=== PATIENT | female | born 1990 | race Caucasian/White ===

== ENCOUNTER 2020-03-28 15:20 | Inpatient (IN) | payer OTHER ==
[2020-03-28 17:19] LABS: BASO % 0.4 % (0-2.0); EOS % 0.1 % (0-4.5); HEMATOCRIT 39.1 % (32.4-45.2); HEMOGLOBIN 12.7 GM/dL (10.7-15.3); LYMPH % 17.4 % (8-40); MCHC 32.6 g/dl (32.0-36.0); MEAN CELL VOLUME 95.1 fl (80-96); MEAN PLT VOLUME 8.4 fl (7.5-11.1); NEUT % 75.1 % (42.8-82.8); PLATELET COUNT 285 K/MM3 (134-434); RBC 4.11 M/mm3 (3.60-5.2); RDW 14.1 % (11.6-15.6); WHITE BLOOD COUNT 13.4 K/mm3 (4.0-10.0)
[2020-03-28 17:31] LABS: INR 1.03 (0.83-1.09); PROTHROMBIN TIME (PATIENT) 12.2 SEC (9.7-13.0)
[2020-03-28 17:34] LABS: ACTIVATED PTT 26.6 SECONDS (25.2-36.5)
[2020-03-28 17:45] LABS: BLOOD UREA NITROGEN 7.4 mg/dL (7-18); CALCIUM 9.4 mg/dL (8.5-10.1); CREATININE 0.4 mg/dL (0.55-1.3); POTASSIUM 3.8 mmol/L (3.5-5.1)
[2020-03-28 18:12] VITALS: BMI 31.6
--- NOTE | 2020-03-28 19:09 | HP ---
Past Medical History - Admission Chief Complaint: PROM History of Present Illness: 29yo @ 38+wks by LMP/sono here for PROM No ctx/VB. 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: No: Alzheimer's, CVA, Dementia, Migraine, Multiple Sclerosis, Peripheral Neuropathy, Parkinson's, Seizure, Syncope, TIA, Vertigo, Other Cardiovascular: No: AFIB, Aneurysm, Aortic Insufficiency, Aortic Stenosis, CAD, CHF, Deep Vein Thrombosis, HTN, Hyperlipdemia, WI, Mitral Insufficiency, Mitral Stenosis, Murmur, Pulmonary Hypertension, Other Pulmonary: No: Asthma, Bronchitis, Cancer, COPD, O2 Dependent, Pneumonia, Previously Intubated, Pulmonary Embolus, Pulmonary Fibrosis, Sleep Apnea, Other Gastrointestinal: No: Ascites, Cancer, Constipation, Crohn's Disease, Diverticulitis, Diverticulosis, Esophageal Varices, Gastritis, GERD, GI Bleed, Hemorrhoids, Hiatal Hernia, Inflamatory Bowel Disease, Irritable Bowel Disease, Pancreatitis, Peptic Ulcer Disease, Ulcerative Colitis, Other Hepatobiliary: No: Cirrhosis, Cholelithiasis, Cholecystitis, Choledocholithiasis, Hepatitis A, Hepatitis B, Hepatitis C, Other Renal/: No: Renal Failure, Renal Inusuff, BPH, Cancer, Hematuria, Hemodialysis, Neurogenic Bladder, Renal Calculi, UTI, Other Reproductive: No: Ectopic , Endometriosis, Fibroids, PID, Polycystic Ovary Syndrome, Postmenopausal, Other ...: 3 ...Para: 1 ...Term: 1 ...: 0 ...Spon : 0 ...Induced : 1 ...Living Children: 1 ...Multiple Gestation: 0 ...LMP: 07/07/19 ... Weeks Gestation by Dates: 37.6 ...EDC by Dates: 04/12/20 ...EDC by Sono: 04/14/20 Heme/Onc: No: Anemia, B12 Deficiency, Bleeding Disorder, Cancer, Current Chemotherapy, Current Radiation Therapy, Hemochromatosis, Hypercoaguable State, Myeloproliferative Synd, Sickle Cell Disease, Sickle Cell Trait, Thr ombocytopenia, Other Infectious Disease: No: AIDS, C-Diff, Herpes Zoster, HIV, MRSA, STD's, Tuberculosis, VREF, Other Psych: No: Addictions, Anxiety, Bipolar, Depression, Panic, Psychosis, Schizophrenia, Other Musculoskeletal: No: Bursitis, Chronic low back pain, Hemiparesis, Hemiplegia, Osteoarthritis, Paraplegia, Other Rheumatology: No: Fibromyalgia, Gout, Lupus, Rheumatoid Arthritis, Sarcoidosis, Vasculitis, Other - Past Surgical History Past Surgical History: Yes: None Hx Myomectomy: No Hx Transabdominal Cerclage: No - Smoking History Smoking history: Never smoked - Alcohol/Substance Use Hx Alcohol Use: No History of Substance Use: reports: None - Social History Usual Living Arrangement: Yes: With Significant Other Do you think of yourself as: Straight/Heterosexual ADL: Independent History of Recent Travel: No Home Medications - Allergies Allergies/Adverse Reactions: Allergies Allergy/AdvReac Type Severity Reaction Status Date / Time No Known Allergies Allergy Verified 03/28/20 17:46 - Home Medications Home Medications: Ambulatory Orders Prenat 115/Iron Fum/Folic/Dss [ 19 Tablet] 1 each PO DAILY 03/28/20 Review of Systems - Review of Systems Constitutional: reports: No Symptoms Cardiovascular: reports: No Symptoms Respiratory: reports: No Symptoms Physical Exam - Maternity Vital Signs: Vital Signs Temperature 99.1 F 03/28/20 18:00 Pulse Rate 122 H 03/28/20 18:00 Respiratory Rate 18 03/28/20 18:00 Blood Pressure 101/56 L 03/28/20 18:00 O2 Sat by Pulse Oximetry (%) - Abdominal Exam/OB Number of Fetuses: Single Presentation: Vertex Contractions: Yes Regularity: Irregular Intensity: Unaware Monitor Mode: External Heart Rate Location: [facility] Category: I Accelerations: Non-Uniform Decelerations: None - Vaginal Exam/OB Vaginal Bleeding: No Speculum Exam: No Dilatation (cm): 3 Effacement (%): 50 Amniotic Membrane Status: Ruptured Nitrazine Test: Positive Amniotic Fluid: Yes: Clear Meconium: Light Presentation: Vertex/Position Station: -3 - Physical Exam Edema: No - Labs Lab Results: CBC, BMP 03/28/20 16:35 03/28/20 16:35 Imaging - Results Ultrasound: Report Reviewed Problem List - Problems (1) PROM (premature rupture of membranes) Code(s): O42.90 - VALERIA ROM, 7TH0 BETW RUPT & ONST LABR, UNSP WEEKS OF GEST Assessment/Plan 39yo @ 37.6wks by LMP/harmeet, KHAI 04/12/20 here with PROM Admit to L&D Cat I tracing Admission labs Pitocin IOL Epidural prn Anticipate ESSIE Verma MD
[2020-03-28] MEDS ORDERED: DEXTROSE 5%-LACTATED RINGERS 1,000 ML IV SCH (19:15)
[2020-03-28] MEDS ORDERED: OXYTOCIN 30 UNITS in 0.9% NS 30 UNIT/500 ML INFUS.BAG IVPB SCH (19:15)
[2020-03-28] MEDS ORDERED: OXYTOCIN 30 UNITS in 0.9% NS 30 UNIT/500 ML INFUS.BAG IVPB ONE (20:01)
[2020-03-28] MEDS: ELECTROLYTE-148 SOLN 1,000 ML IV SCH ×2 (20:15→23:00)
[2020-03-28] MEDS: AMPICILLIN - 2 GM in SODIUM CHLORIDE 100 ML IVPB SCH (21:45)
[2020-03-28] MEDS ORDERED: FENTANYL/BUPIVACAINE/NS/PF - PCEA - 50 ML DISP.SYRIN EP ONE (21:47)
[2020-03-28] MEDS ORDERED: PCA PUMP NR ONE (21:47)
[2020-03-28] MEDS ORDERED: AMPICILLIN SODIUM 2 GM VIAL ONE (21:47)
[2020-03-28] MEDS ORDERED: GENTAMICIN SO4 80 MG/2 ML VIAL ONE (21:47)
--- NOTE | 2020-03-28 21:47 | PN ---
Progress Note, Labor Vaginal Exam #1 Labor Exam Date: 03/28/20 Labor Exam Time: 21:46 Heart Rate (range): Cat II Dilatation: 3-4 Effacement (%): 70 Amniotic Membrane Status: Ruptured Presentation: Vertex/Position Station: -3 Remarks: Febrile 100.5 tachycardia 170s, moderate variability with no decels Will start Amp/Gent IV Tylenol Epidural Resume pitocin when FHT Cat I Discussed possibility of PLTCS for chorio Rosalinda Verma MD
[2020-03-28] MEDS ORDERED: ACETAMINOPHEN 1000 MG/100 ML VIAL (NON FORMULARY) IVPB ONE (21:48)
[2020-03-28] MEDS ORDERED: ACETAMINOPHEN INJECTION 100 ML IVPB ONE (21:57)
[2020-03-28] MEDS: GENTAMICIN INJECTION 80 MG in DEXTROSE 5%-WATER - 250 ML IVPB SCH (22:45)
[2020-03-28] MEDS ORDERED: NALOXONE HCL 0.4 MG/ML VIAL IVPUSH PRN (23:15)
[2020-03-28] MEDS ORDERED: FENTANYL/BUPIVACAINE/NS/PF - PCEA - 50 ML DISP.SYRIN EP SCH (23:15)
[2020-03-29] MEDS ORDERED: GENTAMICIN SO4 80 MG/2 ML VIAL ONE (01:15)
[2020-03-29] MEDS ORDERED: AMPICILLIN SODIUM 2 GM VIAL ONE (01:15)
[2020-03-29] MEDS: GENTAMICIN INJECTION 80 MG in DEXTROSE 5%-WATER - 250 ML IVPB SCH ×2 (02:00→14:59)
[2020-03-29] MEDS ORDERED: FENTANYL/BUPIVACAINE/NS/PF - PCEA - 50 ML DISP.SYRIN EP ONE (02:06)
[2020-03-29] MEDS: AMPICILLIN - 2 GM in SODIUM CHLORIDE 100 ML IVPB SCH ×4 (02:56→21:04)
--- NOTE | 2020-03-29 04:11 | PN ---
Progress Note, Labor Vaginal Exam #2 Labor Exam Date: 03/29/20 Labor Exam Time: 04:05 Heart Rate (range): Cat II Dilatation: 4 Effacement (%): 80 Amniotic Membrane Status: Ruptured Presentation: Vertex/Position Station: -3 Remarks: Pt with recurrent variable decels, deborah 20 below baseline max Pt repositioned, mild improvement IUPC placed, 10MVU with each contraction Grossly inadequate contractions Will monitor for additional hour and reassess, may need possible C/S Rosalinda Verma MD
[2020-03-29] MEDS ORDERED: CITRIC ACID/SODIUM CITRATE 30 ML UNIT-DOSE CUP PO ONE (04:37)
--- NOTE | 2020-03-29 04:41 | PN ---
Progress Note, Labor Vaginal Exam #3 Labor Exam Date: 03/29/20 Labor Exam Time: 04:39 Heart Rate (range): Cat II Remarks: IUPC placed, MVU <50, severely inadequate contractions Pitocin at 5mu Recurrent variable decels have continued with no decreased variability In light of intolerance, chorio and patient still remote from delivery, recommendation made to proceed to OR for PLTCS Risks and indications reviewed All questions answered. Consents signed. NICU, Anesthsia made aware Rosalinda Verma MD.
[2020-03-29] MEDS ORDERED: LIDO 2%/EPI 1:200000 PRESRVFRE (20 ML SDVIAL) ONE (04:57)
[2020-03-29] MEDS ORDERED: OXYTOCIN 10 UNITS/ML VIAL ONE (05:05)
[2020-03-29] MEDS ORDERED: OXYTOCIN 20 UNITS in 0.9% NS 20 UNIT/1,000 ML INFUS.BAG IV ONE (05:51)
[2020-03-29] MEDS ORDERED: morphine SULFATE/PF 0.5 MG/ML (2cc Syringe - QUVA) ONE ×2 (06:06)
[2020-03-29] MEDS ORDERED: IBUPROFEN 800 MG/8 ML IJ IVPB PRN (06:19)
[2020-03-29] MEDS ORDERED: METHYLERGONOVINE MALEATE 0.2 MG/1 ML AMP IM PRN (06:19)
[2020-03-29] MEDS ORDERED: oxyCODONE HCL 5 MG TABLET PO PRN (06:19)
--- NOTE | 2020-03-29 06:19 | OP ---
Operative Note - Note: Operative Date: 03/29/20 Pre-Operative Diagnosis: 38 week , Chorioamnionitis, NRFHT, Failure to progress Operation: Primary Low Transverse Findings: VMI, ROT, no nuchal, no meconium. Weight 6.15, Apgars 9/9, no nuchal, no meconium, normal tubes and ovaries Post-Operative Diagnosis: Same as Pre-op Surgeon: Kortney Verma Crepe Box Tender: Efren Denny Anesthesia: Epidural Estimated Blood Loss (mls): 600 Drains, Volume Out (mls): 400 (clear urine) Operative Report Dictated: Yes
[2020-03-29] MEDS ORDERED: OXYTOCIN 20 UNITS in 0.9% NS 20 UNIT/1,000 ML INFUS.BAG IV SCH (06:30)
[2020-03-29] MEDS ORDERED: IBUPROFEN 800 MG/8 ML IJ IVPB ONE (08:01)
[2020-03-29] MEDS: FERROUS SO4 325 MG TABLET (FP) PO SCH ×2 (11:06→22:55)
[2020-03-29] MEDS: PRENATAL VITAMINS W/ FOLIC ACID TABLET (FP) PO SCH (11:07)
[2020-03-29] MEDS: GENTAMICIN 80 MG PREMIXED IVPB 80 MG/100 ML BAG IVPB SCH ×2 (12:30→19:08)
[2020-03-29] MEDS: ACETAMINOPHEN 325 MG TABLET (FP) PO PRN ×2 (17:51→21:32)
[2020-03-29] MEDS: SIMETHICONE 80 MG TAB.CHEW (FP) PO PRN ×2 (17:51→21:32)
[2020-03-29] MEDS: IBUPROFEN 600 MG TABLET (FP) PO PRN ×2 (17:51→21:32)
--- NOTE | 2020-03-29 23:00 | OP ---
DATE OF OPERATION: 03/29/2020 PREOPERATIVE DIAGNOSIS: A 38-week , chorioamnionitis, nonreassuring heart tracing, failure to progress. POSTOPERATIVE DIAGNOSIS: A 38-week , chorioamnionitis, nonreassuring heart tracing, failure to progress. PROCEDURE: Primary low transverse section. ANESTHESIA: Epidural. INTRAVENOUS FLUIDS: Per anesthesia record. ESTIMATED BLOOD LOSS: 600. URINE OUTPUT: 400 mL of clear urine. SURGEON: Kortney Verma MD. TEXTILE BAG SEWER: DONTAE Donald. ANESTHESIOLOGIST: Dr. Taylor FINDINGS: Viable male , ROT presentation, no nuchal, no meconium, Apgars 9 and 9, weight 6 pounds 15 ounces, normal tubes and ovaries bilaterally. COMPLICATIONS: None. CONDITION: Stable to recovery room. DESCRIPTION OF PROCEDURE: After appropriate consents were signed, patient was taken to the operating room. Epidural anesthesia was confirmed. A sterile Mercer catheter had been inserted prior to entry into the operating room. The abdomen was prepped and draped in the normal sterile fashion. Timeout was performed confirming correct patient and procedure. A Pfannenstiel incision was made in the skin with the scalpel carried through to the underlying layers until the fascia was nicked in the midline. Fascia was then extended laterally with the Erickson scissors. The inferior aspect of the fascia was grasped with the Gerda clamps, tented upwards, and the rectus muscles dissected off bluntly and with Erickson scissors and blunt dissection. Attention was then paid to the superior aspect which was taken down in a similar fashion. The rectus muscles were bluntly in the midline. The peritoneum was entered bluntly. Bladder blade was inserted. The bladder reflection was made with the Metzenbaum scissors and gentle dissection. The bladder blade was readjusted. The uterus was incised in a lower transverse fashion. Clear amniotic fluid was still noted. 's head was delivered without difficulty as were the remaining shoulders and body. The cord was clamped and cut, the infant was handed off to the waiting NICU staff. Placenta was then removed manually. The uterus was cleared of all clot and debris. The hysterotomy was closed in 2 layers with 0 Vicryl. An area had to be reinforced with 2-0 chromic to achieve hemostasis. The gutters were cleared of all clot and debris. The adnexa were inspected and noted to be normal. Hysterotomy was examined and noted to be hemostatic. The muscles were closed with the 2-0 chromic. The fascia was closed with 0 Vicryl. The subcutaneous fat was closed with 2-0 plain. Skin was closed with 3-0 Biosyn. Appropriate bandages were placed. All lap counts, needle sponge counts were correct x3. Patient received ampicillin and gentamicin prior to the operation secondary to chorioamnionitis. She was taken from the operating room to the recovery area in stable condition. MD BRUCE DOTY/[id number] MTDD
[2020-03-30] MEDS: SIMETHICONE 80 MG TAB.CHEW (FP) PO PRN ×4 (03:03→21:03)
[2020-03-30] MEDS: ACETAMINOPHEN 325 MG TABLET (FP) PO PRN ×3 (03:04→21:03)
[2020-03-30] MEDS: IBUPROFEN 600 MG TABLET (FP) PO PRN ×4 (03:04→21:03)
[2020-03-30] MEDS ORDERED: BISACODYL 10 MG SUPP.RECT RC PRN (06:19)
--- NOTE | 2020-03-30 06:35 | PN ---
Progress Note (short form) - Note Progress Note: pod 1 s/p c/s , ambulating , has mild inciaonal discomfort CBC, BMP 03/28/20 16:35 03/28/20 16:35 Last Vital Signs Temp Pulse Resp BP Pulse Ox 98.2 F 96 H 18 114/76 99 03/30/20 01:34 03/30/20 01:34 03/30/20 04:00 03/30/20 01:34 03/29/20 21:00 abdomen soft, no distension, no cva incison dry, clean no calf tenderness lochia mild plan ambulate , cbc advance diet pain management
--- NOTE | 2020-03-30 08:10 | PN ---
Progress Note (short form) - Note Progress Note: 29F s/p C/S under epidural with duramorph. No new c/o. Vital Signs Temp 98.1 F 03/30/20 06:00 Pulse 97 H 03/30/20 06:00 Resp 18 03/30/20 06:00 BP 107/72 03/30/20 06:00 Pulse Ox 99 03/29/20 21:00 Intake & Output 03/29/20 03/29/20 03/30/20 11:59 23:59 11:59 Intake Total 1350 1125 900 Output Total 1400 3700 1100 Balance -50 -2575 -200 Intake: IV 1050 1125 700 NORMAL SALINE+20 UNITS 500 1125 700 OXYTOCIN - 20 unit In 1, 000 ml @ 125 mls/hr IV ASDIR JM Rx#:[id number] NORMAL SALINE+30 UNITS 50 OXYTOCIN 30 unit In 500 ml @ 0.06 UNIT/HR 1 mls/ hr IVPB TITR JM Rx#: [id number] Plasma-Lyte 148 - 1,000 500 ml @ 125 mls/hr IV ASDIR JM Rx#:[id number] IVPB 300 200 Output: Urine 1400 3700 1100 Mercer 1400 3700 Void 1100 Other: Voiding Method Indwelling Catheter Weight 6 lb 15 oz Length 18.5 in - No anesthesia complications
[2020-03-30] MEDS: FERROUS SO4 325 MG TABLET (FP) PO SCH ×2 (09:20→21:47)
[2020-03-30] MEDS: PRENATAL VITAMINS W/ FOLIC ACID TABLET (FP) PO SCH (09:21)
[2020-03-30 09:26] LABS: POC NITRAZINE POS
[2020-03-30 10:01] LABS: BASO % 0.2 % (0-2.0); EOS % 0.4 % (0-4.5); HEMATOCRIT 33.2 % (32.4-45.2); HEMOGLOBIN 10.9 GM/dL (10.7-15.3); LYMPH % 11.3 % (8-40); MCH 31.4 pg (25.7-33.7); MEAN CELL VOLUME 95.1 fl (80-96); MONO % 7.3 % (3.8-10.2); NEUT % 80.8 % (42.8-82.8); PLATELET COUNT 258 K/MM3 (134-434); RBC 3.49 M/mm3 (3.60-5.2)
[2020-03-31] MEDS: ACETAMINOPHEN 325 MG TABLET (FP) PO PRN ×2 (01:48→09:50)
[2020-03-31] MEDS: IBUPROFEN 600 MG TABLET (FP) PO PRN ×2 (01:48→09:49)
[2020-03-31 09:31] VITALS: BP 125/73; PULSE 95; TEMP 97.9
[2020-03-31] MEDS: FERROUS SO4 325 MG TABLET (FP) PO SCH (09:49)
[2020-03-31] MEDS: SIMETHICONE 80 MG TAB.CHEW (FP) PO PRN (09:51)
[2020-03-31] MEDS: PRENATAL VITAMINS W/ FOLIC ACID TABLET (FP) PO SCH (10:00)
--- NOTE | 2020-03-31 10:46 | DS ---
Physical Examination Vital Signs: Vital Signs Temperature 97.9 F 03/31/20 09:24 Pulse Rate 95 H 03/31/20 09:24 Respiratory Rate 20 03/31/20 09:24 Blood Pressure 125/73 03/31/20 09:24 O2 Sat by Pulse Oximetry (%) 99 03/29/20 21:00 Findings/Remarks: ambulating, tolerating PO, lochia decreased, voiding. PP/ost-op precautions discussed. Constitutional: Yes: Calm HENT: Yes: Atraumatic Neck: Yes: Supple Cardiovascular: Yes: Regular Rate and Rhythm Respiratory: Yes: Regular Gastrointestinal: Yes: Normal Bowel Sounds (sutures in place and incision intact), Soft ...Rectal Exam: Yes: Other Renal/: Yes: Other Breast(s): Yes: Other Musculoskeletal: Yes: WNL Extremities: Yes: WNL Edema: Yes Edema: LLE: Trace, RLE: Trace Integumentary: Yes: WNL Wound/Incision: Yes: Clean/Dry, Well Approximated, Sutures Intact Neurological: Yes: Alert, Oriented Psychiatric: Yes: Alert, Oriented Labs: CBC, BMP 03/30/20 09:22 03/28/20 16:35 Discharge Summary Problems reviewed: Yes Reason For Visit: LABOR ADMISSION Current Active Problems PROM (premature rupture of membranes) (Acute) Procedures: Principal: PLTCS Hospital Course: Delivery complicated by choriamnionitis and PLTCS Plan of Treatment: follow up within 1 week at health center for incision check Condition: Stable - Instructions Diet, Activity, Other Instructions: Regular Diet Follow up in 3 weeks for a visit with Dr. Verma Referrals: Kotrney Verma MD [Staff Physician] - Disposition: HOME - Home Medications Comprehensive Discharge Medication List: Ambulatory Orders Prenat 115/Iron Fum/Folic/Dss [ 19 Tablet] 1 each PO DAILY 03/28/20 Breast Pump 1 each MC 5XD 30 Days #1 each 03/30/20 Ferrous Sulfate [Feosol] 325 mg PO DAILY #30 tablet 03/30/20 Ibuprofen 600 mg PO Q6H PRN #30 tablet 03/30/20 Oxycodone HCl/Acetaminophen [Percocet 5-325 mg Tablet -] 1 - 2 tab PO Q6H PRN #20 tab MDD 4 03/30/20
--- NOTE | 2020-04-03 15:11 | PATH ---
Surgical Pathology Report Patient Name: NELSON FOFANA [facility]. Rec. 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 TRIVASCULAR CORD. MEMBRANES WITH NO DIAGNOSTIC ABNORMALITIES. Electronically Signed Osito Bowden M.D. Gross Description The specimen is received fresh labeled placenta and is a 402 gram, 20.0 x 15.0 x 2.8 cm. placenta with attached membranes and umbilical cord. The attached membranes are gutierrez, translucent with focal opacities and insert marginally. The umbilical cord measures 21 cm. in length and averages 1.3 cm. in diameter. The cord inserts eccentrically, 5 cm. to the nearest margin. No true knots or strictures are identified. Cut surface of the umbilical cord reveals 3 vessels. The surface is duckworth blue with moderate fibrin deposition and appropriate caliber vessels. The maternal surface is red-brown with focal defects. Sectioning reveals red-brown, spongy parenchyma. No lesions are identified. Cartoon Artist sections are submitted in three cassettes as follows: 1- membrane rolls and umbilical cord; 2-3- full thickness sections of placenta. /03/30/2020 [facility]/03/30/2020
== END 2020-03-31 15:30 | disposition home or self-care (01) | DRG 540 ==
LOC: JLDR 15:20 → J3W 03-29 10:44
PROVIDERS: ADMIT Obstetrics & Gynecology; ATTEND Obstetrics & Gynecology
PROC: 10D00Z1 Extraction of Products of Conception, Low, Open Approach (ICD-10-PCS; principal; 2020-03-29)
DX: O42.90 Premature rupture of membranes, unspecified as to length of time between rupture and onset of labor, unspecified weeks of gestation (principal); O41.1230 Chorioamnionitis, third trimester, not applicable or unspecified; O76 Abnormality in fetal heart rate and rhythm complicating labor and delivery; O61.0 Failed medical induction of labor; Z3A.37 37 weeks gestation of pregnancy; Z37.0 Single live birth
CPT/HCPCS: 36415; 80048; 83986-QW; 85025; 85610; 85730; 86780; 86850; 86900; 86901; 88307-TC; J0131; U0003